=== PATIENT | female | born 1995 ===

== ENCOUNTER 2017-11-07 08:53 | Emergency (ER) | payer OTHER, SELFPAY ==
[2017-11-07 08:53] VITALS: BMI 29.2
[2017-11-07 08:59] VITALS: BP 144/86; PULSE 95; RESP 20; TEMP 98.7; O2SAT 98
--- NOTE | 2017-11-07 10:43 | ED PDOC ---
HPI: Skin/Bite Injury Time Seen by Provider: 11/07/17 10:36 Chief Complaint (Nursing): Abnormal Skin Integrity Chief Complaint (Provider): bed bug History Per: Patient History/Exam Limitations: no limitations Additional Complaint(s): 22yo F in ED for eval of lesion on body ? insect bite-pt believes she was bitten by bed bugs-took picstures of insect. had rn occupational health come to home. no cough no chest pain no swelling of lips, tongue no resp. distress Past Medical History Reviewed: Historical Data, Nursing Documentation, Vital Signs Vital Signs: Last Vital Signs Temp 98.7 F 11/07/17 08:58 Pulse 95 H 11/07/17 08:58 Resp 20 11/07/17 08:58 BP 144/86 11/07/17 08:58 Pulse Ox 98 11/07/17 08:58 - Medical History PMH: Anxiety, Asthma, Bronchitis, Depression Denies: Chronic Kidney Disease - Family History Family History: States: Unknown Family Hx - Immunization History Hx Tetanus Toxoid Vaccination: No Hx Influenza Vaccination: No Hx Pneumococcal Vaccination: No - Home Medications Home Medications: Ambulatory Orders Medication Instructions Recorded Naproxen Sodium [Aleve] 220 mg PO PRN PRN 10/23/17 Acetaminophen/Butalbital/Caf 1 tab PO Q6 PRN #16 tab 10/24/17 [Fioricet] Permethrin 1% Kit [Nix Complete 59 ml TP ONCE #2 bottle 11/07/17 Lice Elimination Kit 1%] - Allergies Allergies/Adverse Reactions: Allergies Allergy/AdvReac Type Severity Reaction Status Date / Time No Known Allergies Allergy Verified 07/29/17 16:39 Review of Systems ROS Statement: Except As Marked, All Systems Reviewed And Found Negative Constitutional: Negative for: Fever Physical Exam - Reviewed Nursing Documentation Reviewed: Yes Vital Signs Reviewed: Yes - Physical Exam Appears: Positive for: Well, Non-toxic, No Acute Distress Skin: Positive for: Normal Color, Warm, Rash Neurologic/Psych: Positive for: Alert, Oriented - ECG O2 Sat by Pulse Oximetry: 98 Medical Decision Making Medical Decision Making: dx: bed bugs tx: permethrin cream plan: continue following protocal Disposition - Clinical Impression Clinical Impression: Insect bite - Patient ED Disposition Is Patient to be Admitted: No Counseled Patient/Family Regarding: Diagnosis, Need For Followup, Rx Given - Disposition Disposition: Routine/Home Disposition Time: 10:45 Condition: STABLE Prescriptions: Permethrin 1% Kit [Nix Complete Lice Elimination Kit 1%] 59 ml TP ONCE #2 bottle Instructions: Bed Bugs (ED), Insect Bite or Sting (ED)
== END 2017-11-07 10:53 | disposition home or self-care (01) ==
LOC: H.ER 08:53
DX: T14.8XXA Other injury of unspecified body region, initial encounter (principal); W57.XXXA Bitten or stung by nonvenomous insect and other nonvenomous arthropods, initial encounter; Y92.89 Other specified places as the place of occurrence of the external cause; F32.9 Major depressive disorder, single episode, unspecified; F41.9 Anxiety disorder, unspecified; J45.909 Unspecified asthma, uncomplicated